=== PATIENT | male | born 1975 | race Caucasian/White ===

== ENCOUNTER 2024-06-07 08:02 | Emergency (ER) | payer OTHER, SELFPAY ==
--- NOTE | 2024-06-07 08:12 | ED_ITS ---
HPI - General Adult General Chief complaint: Upper Respiratory Infection Stated complaint: cough and sinus irritation Time Seen by Provider: 06/07/24 08:12 Source: patient Mode of arrival: ambulatory Limitations: no limitations History of Present Illness HPI narrative: 49-year-old male patient presents to the [facility] with complaints of cold symptoms for the past 5 days. Patient states he has had a cough, sinus drainage and pressure. Denies any fevers, body aches or chills. Denies any ear pain. Denies sore throat. Denies any chest pain or shortness of breath. Denies any nausea, vomiting or diarrhea. Patient states he did take 2 COVID test since symptoms started last 1 being yesterday both were negative. Patient states he has been taking [id number] Mucinex, NyQuil and Motrin for symptoms. Patient states he takes Zyrtec daily. Related Data Home Medications Medication Instructions Recorded Confirmed amlodipine 5 mg tablet mg 06/07/24 atorvastatin 20 mg tablet mg 06/07/24 Allergies Allergy/AdvReac Type Severity Reaction Status Date / Time No Known Allergies Allergy Verified 06/07/24 08:20 Review of Systems Review of Systems: CONSTITUTIONAL: Denies fever, chills, or sweats. EYES: Denies visual changes, redness, or discharge. ENT: Positive rhinorrhea, congestion, denies sore throat, or otalgia. CARDIOVASCULAR: Denies chest pain, palpitations, or edema. RESPIRATORY: positive cough , denies dyspnea. GASTROINTESTINAL: Denies abdominal pain, nausea, vomiting, or diarrhea. GENITOURINARY: Denies dysuria or hematuria. SKIN: Denies rash or itching. MUSCULOSKELETAL: Denies back pain, joint pain, or myalgia. NEUROLOGIC: positive headache, denies numbness, or weakness. PSYCHIATRIC: Denies anxiety or depression. [facility] Past Medical History Medical History (Updated 06/07/24 @ 08:42 by KOKO Harris) Hypercholesteremia Hypertension Comments At the time of my signature I agree with nursing past medical history, surgical, social, and family history. There is no relevant family history pertinent to the presenting complaint. Exam Narrative: GENERAL: Well-appearing, well-nourished, and in no acute distress. HEAD: Normocephalic, atraumatic. EYES: PERRLA and EOMI. ENT: Nares with erythema edema noted bilaterally but patent, no rhinorrhea or epistaxis. Mucous membranes moist. posterior pharynx with no erythema, tonsillar enlargement, exudates or lesions present. There is a small amount of postnasal drip noted on exam. Unable to assess bilateral TMs due to cerumen impaction to bilateral sides. NECK: Supple. No lymphadenopathy CHEST: Clear to auscultation. No respiratory distress. Patient able talk in clear complete sentences. Patient does have a mild dry cough noted during exam. HEART: Regular rate and rhythm. No murmur heard. Normal peripheral pulses. ABDOMEN: Soft, nontender, nondistended, normal active bowel sounds. EXTREMITIES: Normal range of motion. No edema. SKIN: Warm, dry, no rash. NEURO: No focal deficits. Alert and oriented x3. Course Course Level of Care: Express Care Visit Vital Signs Vital signs: Vital Signs Temperature 36.5 C 06/07/24 08:19 Pulse Rate 66 06/07/24 08:19 Respiratory Rate 18 06/07/24 08:19 Blood Pressure 138/90 06/07/24 08:19 Pulse Oximetry 100 06/07/24 08:19 Oxygen Delivery Room Air 06/07/24 08:19 Temperature 36.5 C 06/07/24 08:21 Pulse Rate 66 06/07/24 08:21 Respiratory Rate 18 06/07/24 08:21 Blood Pressure 138/90 06/07/24 08:21 Pulse Oximetry 100 06/07/24 08:21 Oxygen Delivery Room Air 06/07/24 08:21 vital signs reviewed. The patient has been informed that they may have pre-hypertension or Hypertension based on a BP reading in the department. I recommend that the patient call the primary care provider listed on their discharge instructions or a physician of their choice this week to arrange follow up for further evaluation of possible pre-hypertension or Hypertension Medical Decision Making MDM Narrative Medical decision making narrative: Plan care patient is discharged home with Eufemia Schmidt for the cough and methylprednisolone to help with the sinus symptoms. Discussed with patient this is viral will need to run its course. Discussed with patient to continue taking his Zyrtec daily and also introduced a Flonase to help the drainage behind the ears. Discussed with patient if he starts running fevers, having chest pain or shortness of breath he needs go the ER for further evaluation treatment. Patient verbalized understanding denies any other questions or concerns. Differential Diagnosis Differential Diagnosis: Differential diagnosis: Allergic rhinitis, chronic sinusitis, tonsillitis, acute sinusitis, infectious mononucleosis, seasonal influenza, pertussis, diphtheria, meningococcal disease, viral syndrome, viral bronchitis, RSV, COVID- 19 Vital Signs Vital Signs: Vital Signs Temperature 36.5 C 06/07/24 08:19 Pulse Rate 66 06/07/24 08:19 Respiratory Rate 18 06/07/24 08:19 Blood Pressure 138/90 06/07/24 08:19 Pulse Oximetry 100 06/07/24 08:19 Oxygen Delivery Room Air 06/07/24 08:19 Temperature 36.5 C 06/07/24 08:21 Pulse Rate 66 06/07/24 08:21 Respiratory Rate 18 06/07/24 08:21 Blood Pressure 138/90 06/07/24 08:21 Pulse Oximetry 100 06/07/24 08:21 Oxygen Delivery Room Air 06/07/24 08:21 Critical Care Time Critical Care Time Critical Care Time: No Discharge Plan Discharge Clinical Impression: Sinusitis Patient Disposition: Home, Self-Care Condition: Stable Instructions: Antibiotic Form, Sinusitis (ED), Viral Syndrome (ED) Additional Instructions: Viral illness may last between 7-12days; antibiotic is NOT recommended at this time. Recommend antihistamine such as Benadryl at night time and Claritin/Zyrtec/Melany during the day Cough syrup may cause drowsiness; avoid driving or take it at night time. Also, recommend symptomatic treatment includes: rest, fluids, and increase humidity of the air at home. Recommend Acetaminophen or nonsteroidal anti-inflammatory agents (NSAIDs) as directed in the bottle to reduce fever and/pain/headache. Avoid smoking/second-hand smoke. Limit visits to areas with large crowds. Please schedule a follow-up visit with your personal physician for further evaluation and treatment within 3-5days. Including recheck and discussion of your blood pressure. If your symptoms persist, change or worsen significantly before you can contact your personal physician then please, without delay, go to the emergency department for further evaluation. Prescriptions: New methylprednisolone 4 mg tablets,dose pack See Rx Instructions PO .COMPLEX Qty: 21 0RF Rx Instructions: for 6 days benzonatate 200 mg capsule 200 mg PO TID PRN (Reason: cough) 10 Days Qty: 30 0RF No Action atorvastatin 20 mg tablet amlodipine 5 mg tablet Follow-up/Referrals: Junie,Felton Moore MD [Primary Care Provider] - Time of Disposition: 08:40
[2024-06-07 08:19] VITALS: BP 138/90; PULSE 66; RESP 18; TEMP 36.5; O2SAT 100
[2024-06-07 08:21] VITALS: BP 138/90; PULSE 66; RESP 18; TEMP 36.5; O2SAT 100
== END 2024-06-07 08:48 | disposition home or self-care (01) ==
PROVIDERS: Emergency Provider Nurse Practitioner Family; PCP Family Medicine
DX: J32.9 Chronic sinusitis, unspecified (principal); E78.00 Pure hypercholesterolemia, unspecified; I10 Essential (primary) hypertension
CPT/HCPCS: 99203; G0463